=== PATIENT | male | born 1965 | race Two or more races ===

== ENCOUNTER 2022-03-11 11:50 | Emergency (ER) | payer BC, OTHER ==
[2022-03-11 12:09] VITALS: BP 139/92; PULSE 67; RESP 18; TEMP 97.8; BMI 31.3
[2022-03-11] MEDS ORDERED: SODIUM CHLORIDE 1,000 ML IV STA (12:22)
[2022-03-11 12:29] LABS: HEMATOCRIT 42.4 % (35.4-49); HEMOGLOBIN 14.7 G/dL (11.7-16.9); MCH 31.7 pg (25.7-33.7); MCHC 34.6 g/dl (32.0-35.9); MEAN CELL VOLUME 91.8 fl (80-96); MEAN PLT VOLUME 8.6 fl (7.5-11.1); PLATELET COUNT 202.6 10^3/uL (134-434); RBC 4.62 10^6/uL (4.00-5.60); RDW 13.1 % (11.9-15.9); WHITE BLOOD COUNT 2.8 10^3/uL (4.0-10.8)
[2022-03-11 12:47] LABS: EPITHELIAL CELLS RARE /hpf
[2022-03-11 12:58] LABS: ALBUMIN 4.3 g/dl (3.4-5.0); CALCIUM 8.8 mg/dl (8.5-10); CREATININE 0.9 mg/dl (0.55-1.3); TOT PROT 7.2 g/dl (6.4-8.2)
[2022-03-11 13:10] LABS: PLATELET ESTIMATE ADEQUATE
== END 2022-03-11 15:34 | disposition home or self-care (01) ==
LOC: FER 11:50
DX: R10.9 Unspecified abdominal pain (principal)
CPT/HCPCS: 36415; 74177-TC; 80053; 81003; 81015; 83690; 85027; 99285-25; Q9967

== ENCOUNTER 2023-07-14 14:52 | Emergency (ER) | payer BC ==
[2023-07-14 15:02] VITALS: BP 134/95; PULSE 77; RESP 15; TEMP 98.1; BMI 31.1
[2023-07-14] MEDS ORDERED: ALBUTEROL SO4 2.5/IPRATROPIUM 0.5 INH SOL 3 ML VIAL.NEB. NEB ONE (15:39)
[2023-07-14] MEDS: ALBUTEROL SO4 2.5/IPRATROPIUM 0.5 INH SOL 3 ML VIAL.NEB. NEB ONE (15:42)
== END 2023-07-14 16:22 | disposition home or self-care (01) ==
LOC: FER 14:52
PROC: 3E0F7GC Introduction of Other Therapeutic Substance into Respiratory Tract, Via Natural or Artificial Opening (ICD-10-PCS; principal; 2023-07-14)
DX: R05.9 Cough, unspecified (principal); R09.81 Nasal congestion; R50.9 Fever, unspecified; J40 Bronchitis, not specified as acute or chronic; J01.80 Other acute sinusitis; H61.21 Impacted cerumen, right ear; Z20.822 Contact with and (suspected) exposure to COVID-19
CPT/HCPCS: 0241U-QW; 71046-TC-FY; 93005; 99285-25